=== PATIENT | female | born 1975 | race Caucasian/White ===

== ENCOUNTER 2017-06-12 06:07 | Day surgery (SDC) | payer BC ==
[2017-06-12] VITALS (10 sets, daily range): BP systolic 93–110; BP diastolic 59–74
[~2017-06-12] VITALS: Ht 176.5 cm; Wt 63.5 kg
[2017-06-12] MEDS ORDERED: VITAMIN C500 M1 ORAL (06:55)
[2017-06-12] MEDS ORDERED: VITAMIN B122500 MCG PO (06:55)
[2017-06-12] MEDS ORDERED: LR 1000ml ONE (07:00)
[2017-06-12] MEDS ORDERED: Lidocaine 1% MPF 10mg/ml 5ml ONE (07:00)
[2017-06-12] MEDS ORDERED: Propofol 10mg/ml 20ml IV ONE (07:00)
--- NOTE | 2017-06-12 07:12 | Pre-Procedure Note/Attestation ---
Pre-Procedure Note/Attestation Complete Prior to Procedure Planned Procedure: not applicable Procedure Narrative: EGD/Colon Indications for Procedure Pre-Operative Diagnosis: OB (+) Attestation I attest that I discussed the nature of the procedure; its benefits; risks and complications; and alternatives (and the risks and benefits of such alternatives ), prior to the procedure, with the patient (or the patient's legal customer field representative). I attest that, if there was a reasonable possibility of needing a blood transfusion, the patient (or the patient's legal customer field representative) was given the [facility] standardized written summary, pursuant to the [place] Blood Safety Act ([place] Health and Safety Code # 1645, as amended). I attest that I re-evaluated the patient just prior to the surgery and that there has been no change in the patient's H&P, except as documented below: EARNESTINE BAXTER Jun 12, 2017 07:11
--- NOTE | 2017-06-12 07:12 | Short Stay Surgery H&P ---
History of Present Illness History of Present Illness Chief Complaint See H&P HPI Earlinehenny Barbour is a 41 year old female who was admitted on for Blood In Stool Patient History Allergies: Coded Allergies: No Known Allergies (Unverified , 06/12/17) PAST MEDICAL HISTORY: Past Surgeries: Social History: Medication History Scheduled Ascorbic Acid* (Vitamin C*), 500 MG ORAL DAILY, (Reported) Cyanocobalamin (Vitamin B-12) (Vitamin B12), 2,500 MCG PO DAILY, (Reported) Physical Exam Vital Signs Last Vital Signs Date Time Temp Pulse Resp B/P Pulse Ox O2 Delivery O2 Flow Rate FiO2 06/12/17 06:46 97.7 55 18 104/74 100 Room Air Labs Laboratory Tests Test 06/12/17 06:20 Urine HCG, Qualitative Negative Plan Attestation Are the patient's medical conditions optimized for surgery? EARNESTINE BAXTER Jun 12, 2017 07:12
--- NOTE | 2017-06-12 08:00 | Immediate Post-Op Evaluation ---
Immediate Post-Op Evalulation Immediate Post-Op Evalulation Procedure: EGD/Colonoscopy Date of Evaluation: Jun 12, 2017 Time of Evaluation: 07:55 IV Fluids: 500 Blood Pressure Systolic: 93 Blood Pressure Diastolic: 50 Pulse Rate: 77 Respiratory Rate: 14 O2 Sat by Pulse Oximetry: 99 Temperature (Fahrenheit): 99.0 Nausea: No Vomiting: No Complications none Patient Status: awake, reacts, patent Hydration Status: adequate Drug: none KAMINIRIKEITHIONMADELINE CRNA Jun 12, 2017 08:00
--- NOTE | 2017-06-12 08:01 | Anethesia Preoperative Eval ---
Anesthesia Pre-op PMH/ROS General Date of Evaluation: Jun 12, 2017 Time of Evaluation: 08:00 Anesthesiologist: tisha ASA Score: ASA 1 Mallampati Score Class I : Soft palate, uvula, fauces, pillars visible Class II: Soft palate, uvula, fauces visible Class III: Soft palate, base of uvula visible Class IV: Only hard plate visible Mallampati Classification: Class II Surgeon: sanjuana Diagnosis: blood in stool Surgical Procedure: EGD/Colonoscopy Anesthesia History: none Family History: no anesthesia problems Allergies: Coded Allergies: No Known Allergies (Unverified , 06/12/17) Past Medical History Cardiovascular: Denies: CAD, HTN, [place], arrhythmia, other, valve dz Pulmonary: Denies: COPD, RUFINO, asthma, other Gastrointestinal/Genitourinary: Denies: CRI, ESRD, GERD, other Neurologic/Psychiatric: Denies: CVA, TIA, dementia, depression/anxiety, other Endocrine: Denies: DM, hypothyroidism, other, steroids HEENT: Denies: [place] (L), [place] (R), cataract (L), cataract (R), glaucoma, other Hematology/Immune: Denies: DVT, anemia, bleeding disorder, other Musculoskeletal/Integumentary: Denies: DDD, DJD, OA, RA, edema, other PSxH Narrative: none Anesthesia Pre-op Phys. Exam Physician Exam Last Vital Signs Date Time Temp Pulse Resp B/P Pulse Ox O2 Delivery O2 Flow Rate FiO2 06/12/17 06:46 97.7 55 18 104/74 100 Room Air Constitutional: NAD Neurologic: CN 2-12 intact Cardiovascular: RRR Respiratory: CTA Gastrointestinal: S/NT/ND Airway Exam Mallampati Score: Class II MO: full ROM: full Dentures: no lower, no upper Anesthesia Pre-op A/P Labs Urine Test Test 06/12/17 06:20 Urine HCG, Qualitative Negative Studies Pre-op Studies: EKG - sr Risk Assessment & Plan Plan: mac Status Change Before Surgery: No Pre-Antibiotics Drug: none MADELINE REYES [employer]ES [employer] Jun 12, 2017 08:01
--- NOTE | 2017-06-12 09:05 | 48 Hour Post Anesthesia Eval ---
Post Anesthesia Evaluation Procedure: EGD/Colonoscopy Date of Evaluation: Jun 12, 2017 Time of Evaluation: 09:04 Blood Pressure Systolic: 103 0: 60 Pulse Rate: 50 Respiratory Rate: 14 O2 Sat by Pulse Oximetry: 100 Airway: patent Nausea: No Vomiting: No Hydration Status: adequate Cardiopulmonary Status: stble Mental Status/LOC: patient returned to baseline Follow-up care needed: N/A MADELINE REYES CRNA Jun 12, 2017 09:05
--- NOTE | 2017-06-12 10:20 | Endoscopy Procedure Note ---
Endoscopy Procedure Note Indication for Procedure: Heme (+) Procedures Performed: EGD, colonoscopy Operative Findings/Diagnosis: gastric dim polyp-bx, rectal ped polyp at 1 - hot SN Specimen: yes Pt Tolerated Procedure Well: Yes Estimated Blood Loss: none Anesthesiologist: see report Anesthesia: MAC Medication Given: see anesthesia record Implant(s) used?: No 50 yrs or older w/o bx or poly: Not Applicable 10yrs. F/U not recommended: Not Applicable If not recommended, why?: EARNESTINE BAXTER Jun 12, 2017 10:19
--- NOTE | 2017-06-12 10:21 | Pre-Procedure Note/Attestation ---
Pre-Procedure Note/Attestation Complete Prior to Procedure Planned Procedure: not applicable Procedure Narrative: EGD/bx, Colon/hot snare Indications for Procedure Pre-Operative Diagnosis: OB (+) Attestation I attest that I discussed the nature of the procedure; its benefits; risks and complications; and alternatives (and the risks and benefits of such alternatives ), prior to the procedure, with the patient (or the patient's legal route sales representative). I attest that, if there was a reasonable possibility of needing a blood transfusion, the patient (or the patient's legal route sales representative) was given the [facility] standardized written summary, pursuant to the And[place] Blood Safety Act ([place] Health and Safety Code # 1645, as amended). I attest that I re-evaluated the patient just prior to the surgery and that there has been no change in the patient's H&P, except as documented below: EARNESTINE BAXTER Jun 12, 2017 10:21
--- NOTE | 2017-06-12 16:02 | Operative Note - Dictated ---
DATE OF OPERATION: 06/12/2017 PROCEDURE: Upper gastroendoscopy with biopsy as well as colonoscopy with snare polypectomy. SURGEON: Estrella Rea M.D. ANESTHESIA: Please see the separate anesthesiologist notes for details. PRE-ENDOSCOPIC DIAGNOSIS: Heme-positive stools. POST-ENDOSCOPIC DIAGNOSES: 1. Diminutive proximal gastric polyps, status post biopsy removal. 2. Pedunculated polyp in the rectum at 15 cm, status post hot snare polypectomy. PROCEDURE: The procedure, its risks, indications, alternatives, and possible complications including, but not limited to, bleeding, infection, perforation, , and anesthesia complications were explained to the patient and informed consent was obtained. The patient was then sedated in the left lateral decubitus position. A diagnostic upper endoscope was introduced through the oropharynx and advanced to the duodenum without difficulty. The endoscope was then gradually withdrawn and the mucosa examined carefully. Examination of the upper gastric mucosa revealed a diminutive polyp in the proximal stomach, which was removed with the biopsy forceps. The endoscope was removed. The rectal exam was done. The colonoscope was introduced into the rectum and advanced to the terminal ileum without difficulty. The colonoscope was then gradually withdrawn and the mucosa examined carefully. Examination of the terminal ileum and mucosa did not reveal any abnormalities. Examination of the colon revealed semi-pedunculated polyp in the rectum at 15 cm, which was approximately 8 to 9 mm. Examination of the colonic mucosa revealed a 1 cm semi-pedunculated polyp in the distal colon at 15 cm, which was removed with a hot snare polypectomy device without any complications. Retroflexed view of the rectum was unremarkable. The colonoscope was removed. The patient was sent to recovery in good condition. COMPLICATIONS: None. RECOMMENDATIONS: 1. Follow up biopsy results. 2. Outpatient followup for review and further recommendations. Estrella Rea M.D. DR: ROMANA JOB#: [id number] CC: Estrella Rea M.D.; Fax#: [phone]
== END 2017-06-12 10:20 | disposition home or self-care (01) ==
LOC: GAS 06:07
DX: K92.1 Melena (principal); K31.7 Polyp of stomach and duodenum; D12.8 Benign neoplasm of rectum
CPT/HCPCS: 43239; 45385; 81025; J2704; J7120; 94003; 94150

== ENCOUNTER 2017-09-02 09:00 | Outpatient (CLI) | payer BC ==
[~2017-09-02 09:00] MED LIST: VITAMIN B122500 MCG PO; VITAMIN C500 M1 ORAL
[2017-09-02 09:27] VITALS: BP 95/48
[2017-09-02] MEDS ORDERED: MULTI VITAMIN1 EACH ORAL (09:33)
--- NOTE | 2017-09-02 09:55 | GI Initial Consult Note ---
History of Present Illness General Date patient seen: Sep 02, 2017 Time patient seen: 09:51 Referring physician: LYNDON Reason for Consultation: SBCE Present Illness HPI 41 year old female patient referred by Dr. Vargas for blood in stools. The patient recent had under gone an EGD/colonoscopy back in April unable to find any source of bleed, see summary below. She presents today for small bowel capsule endoscopy. In addition, the patient complains of constipation. Denies any unintentional weight loss or changes in dietary habits. Endoscopy Procedure Note Indication for Procedure: Heme (+) Procedures Performed: EGD, colonoscopy Operative Findings/Diagnosis: gastric dim polyp-bx, rectal ped polyp at 1 - hot EARNESTINE BAXTER - Jun 12, 2017 10:19 Home Meds Reported Medications Multivitamin (MULTI VITAMIN DAILY) 1 Each Tablet, 1 TAB ORAL DAILY, #30 TAB 0 Refills 09/02/17 Cyanocobalamin (Vitamin B-12) (Vitamin B12) 2,500 Mcg Tablet, 2500 MCG PO DAILY , TAB 06/12/17 Ascorbic Acid* (VITAMIN C*) 500 Mg Tablet, 500 MG ORAL DAILY, #30 TAB 0 Refills 06/12/17 Med list reviewed/reconciled: Yes Allergies: Coded Allergies: No Known Allergies (Unverified , 06/12/17) Patient History History Provided By: Patient, Medical Record [facility] Narrative Asthma Social History: Reports: alcohol use - occasional, other - caffiene Review of Systems All Other Systems: negative except mentioned in HPI Physical Exam Vital Signs Date Time Temp Pulse Resp B/P (MAP) Pulse Ox O2 Delivery O2 Flow Rate FiO2 09/02/17 09:27 97.7 51 18 95/48 Sp02 EP Interpretation: reviewed General Appearance: well appearing, no apparent distress, alert Head: normocephalic EENT: PERRL/EOMI, normal ENT inspection Neck: normal inspection, full range of motion, supple Respiratory: normal breath sounds, no respiratory distress Cardiovascular: normal rate Gastrointestinal: normal inspection, non tender, soft, normal bowel sounds Rectal: deferred Genitourinary: no CVA tenderness Musculoskeletal: normal inspection, back normal Neurologic: normal inspection, alert, oriented x3, responsive Psychiatric: normal inspection, judgement/insight normal, memory normal Skin: normal inspection, normal color, no rash, warm/dry Lymphatic: normal inspection, no adenopathy GI: Plan Problems: (1) Encounter for diagnostic endoscopy (2) Bloody stool (3) Constipation Plan SBCE today. RTC tomorrow to return equipment. Seen with Dr. Logan. Thank you for referring this patient. Mica Stovall N.P. Sep 02, 2017 09:55
--- NOTE | 2017-09-08 19:30 | Procedure Note ---
DATE OF PROCEDURE: 09/02/2017 SURGEON: Presley Logan M.D. REFERRING PHYSICIAN: Estrella Rea M.D. PROCEDURE: Capsule endoscopy. INDICATION: Anemia. The procedure, risks, benefits, and possible consequences, including hemorrhage, aspiration, perforation and infection, and alternative treatments, were explained to the patient/legal guardian by Dr. Presley Logan and the patient/legal guardian understood and accepted these risks. DESCRIPTION OF PROCEDURE: After informed consent was obtained and the patient was ready, the patient swallowed the capsule. Capsule spent 7 minutes in the stomach before entering the small intestine and spent about 4 hours 48 minutes in the small intestine. Quality of prep was good except for the last portion of the small intestine most probably the whole ileum was covered with greenish, bilish fluid. Examination of the mucosa not completely examined in those areas. There is no active finding. There is no bleeding. There is no AVM. There is no polyp. There is no mass seen. Again, the last portion of the small intestine was not fully examined given the prep quality. The patient tolerated the procedure without any complication. Capsule entered the colon at 4 hours 48 minutes. RECOMMENDATIONS: The patient to follow with Dr. Rea, the referring physician, for further management of her anemia. I want to thank Dr. Rea for this kind referral. Presley Logan M.D. DR: Doris JOB#: [id number] CC: Estrella Rea M.D.; Fax#: [phone]
== END 2017-09-02 10:00 | disposition home or self-care (01) ==
LOC: PAN 09:00
DX: K92.1 Melena (principal); K59.00 Constipation, unspecified